=== PATIENT | female | born 2000 | race Caucasian/White ===

== ENCOUNTER 2021-08-27 23:00 | Emergency (ER) | payer OTHER ==
[~2021-08-27 23:00] MED LIST: CYCLOBENZAPRINE10 MG PO; FEOSOL325 MG PO; NAPROXEN500 MG PO; NORCO 5-325 TA1 EACH PO; PRENATAL FORMU1 EACH PO; SILVADENE20 G1 TOP; VIBRAMYCIN100 MG PO; ZOFRAN8 MG PO
[2021-08-27] MEDS ORDERED: MEDROL 4MG DOSEP4 MG PO (23:47)
[2021-08-27] MEDS ORDERED: PEPCID AC20 MG PO (23:47)
[2021-08-27] MEDS ORDERED: ATARAX25 MG PO (23:47)
== END 2021-08-28 00:20 | disposition home or self-care (01) ==
LOC: FER 23:00
DX: L50.0 Allergic urticaria (principal)
CPT/HCPCS: 99282; J1100